=== PATIENT | male | born 1945 | race Hispanic/Latino ===

== ENCOUNTER → 2020-01-21 | Day surgery (SDC) | payer MEDICARE ==
[2020-01-19 14:32] LABS: BASOPHILS # (AUTO) 0.1 (0.0-0.1); BASOPHILS % 0.9 % (0.0-1.0); EOSINOPHILS # (AUTO) 0.2 (0.0-0.4); EOSINOPHILS % 3.1 % (0.0-6.0); HEMATOCRIT 41.1 % (38.2-49.6); HEMOGLOBIN 14.5 g/dL (14.0-18.0); LYMPHOCYTES # (AUTO) 1.7 (1.0-3.2); LYMPHOCYTES % 30.1 % (18.0-39.1); MEAN CORPUSCULAR HEMOGLOBIN 32.2 pg (28-32); MEAN CORPUSCULAR HGB CONC 35.3 g/dL (31-35); MEAN CORPUSCULAR VOLUME 91.3 fL (81-99); MONOCYTES # (AUTO) 0.6 (0.2-0.8); MONOCYTES % 10.3 % (4.4-11.3); NEUTROPHILS # (AUTO) 3.2 (2.1-6.9); NEUTROPHILS % 55.4 % (38.7-80.0); PLATELET COUNT 184 x10e3/uL (140-360); RED CELL DISTRIBUTION WIDTH 12.6 % (11.7-14.4)
[2020-01-19 14:49] LABS: ANION GAP 11.1 mmol/L (8-16); BLOOD UREA NITROGEN 11 mg/dL (7-26); BUN/CREATININE RATIO 12 (6-25); CALCIUM 9.7 mg/dL (8.4-10.2); CARBON DIOXIDE 31 mmol/L (22-29); CHLORIDE 102 mmol/L (98-107); CREATININE, SERUM 0.92 mg/dL (0.72-1.25); EST GLOMERULAR FILTRATION RATE > 60 ML/MIN (60-); GLUCOSE 181 mg/dL (74-118); POTASSIUM 5.1 mmol/L (3.5-5.1); SODIUM 139 mmol/L (136-145)
--- NOTE | 2020-01-19 15:15 | Diagnostic Imaging Report ---
EXAMINATION: CHEST 2 VIEWS INDICATION: Pre-operative COMPARISON: Chest radiograph 10/08/2017 FINDINGS: LINES/TUBES:None LUNGS:The lungs are well-inflated. No focal consolidation or pulmonary edema. Unchanged subcentimeter left lung calcified right normal. PLEURA:No pleural effusion or pneumothorax. MEDIASTINUM:The cardiomediastinal silhouette appears normal in size and shape. Atherosclerotic calcifications of the thoracic aorta. BONES/SOFT TISSUES:No acute osseous injury. Surgical clips at the left axilla. ABDOMEN:No free air under the diaphragm. IMPRESSION: No focal pneumonia or pulmonary edema. Signed by: Diana Valadez MD on 01/19/2020 3:12 PM
[~2020-01-21] MED LIST: ACETAMINOPHEN 1000 MG/100 ML IV ONE; ALPRAZOLAM0.5 MG PO; CEFAZOLIN SOD 1 GM/NS 50ML 100 ML IV ONE; DESFLURANE 240 ML BTL INH ONE; DEXAMETHASONE SOD PHOS INJ 4 MG/ML VIAL ONE; EPHEDRINE SULFATE INJ 50 MG/ML VIAL ONE; EPINEPHRINE 1 MG/ML 30ML VIAL ONE; FENTANYL CITRATE/PF 100MCG/2 ML INJ ONE; GLYCOPYRROLATE INJ 0.2 MG/ML VIAL ONE; HYDROCODONE/APAP 5MG-325MG TAB ONE; LIDOCAINE 2%/ EPINEPHRINE 20ML MDV ONE; LIDOCAINE HCL 2% LOCAL INJ 5 ML SDV VIAL INJ ONE; METFORMIN HCL500 M2 PO; MIDAZOLAM HCL 2 MG/2 ML VIAL ONE; NEOSTIGMINE 1 MG/ML 10ML VIAL ONE; ONDANSETRON HCL INJ 2MG/ML 2ML 2 MG/ML VIAL ONE; PRAVASTATIN SOD20 MG; PROPOFOL IV EMULSION 10 MG/ML 20 ML VIAL ONE; ROCURONIUM BROMIDE 10 MG/ML 5ML VIAL ONE; ROPIVACAINE 0.5% 5 MG/ML 30 ML SDV ONE; ULTRAM50 MG PO
--- OUTSIDE RECORDS SUMMARY | 2020-01-21 05:29 | XMS REPORT ---
Author Author [facility] Address Unknown Phone Unavailable Care Team Providers Care Loss Prevention Associate Name Role Phone REMI VELASCO Unavailable Unavailable Problems This patient has no known problems. Allergies, Adverse Reactions, Alerts This patient has no known allergies or adverse reactions. Medications This patient has no known medications. Results Test Description Test Time Test Comments Text Results Atomic Results Result Comments CHEST 2 VIEWS 2020-01-19 15:08:00 [place] [address] Patient Name: KATHY VAUGHN MR #: [id number] : 1945 Age/Sex: 74/M Req #: [id number] Adm Physician: Ordered by: REMI VELASCO MD Report #: [id number] Location: OR Room/Bed: Procedure: [id number] DX/CHEST 2 VIEWS Exam Date: Exam Time: REPORT STATUS: Signed EXAMINATION: CHEST 2 VIEWS INDICATION: Pre-operative COMPARISON: Chest radiograph 10/08/2017 FINDINGS: LINES/TUBES:None LUNGS:The lungs are well-inflated. No focal consolidation or pulmonary edema. Unchanged subcentimeter left lung calcified right normal. PLEURA:No pleural effusion or pneumothorax. MEDIASTINUM:The cardiomediastinal silhouette appears normal in size and shape. Atherosclerotic calcifications of the thoracic aorta. BONES/SOFT TISSUES:No acute osseous injury. Surgical clips at the left axilla. ABDOMEN:No free air under the diaphragm. IMPRESSION: No focal pneumonia or pulmonary edema. Signed by: Sherie Dewey MD on 01/19/2020 3:12 PM Dictated By: SHERIE DEWEY MD 11 Transcribed By: MIKAYLA on 01/19/201511 COPY TO: REMI VELASCO MD CHEST 2 VIEWS [place] [address] Patient Name: KATHY VAUGHN MR #: [id number] : 1945 Age/Sex: 72/M Req #: [id number] Adm Physician: Ordered by: REMI VELASCO MD Report #: [id number] Location: OR Room/Bed: Procedure: [id number] DX/CHEST 2 VIEWS Exam Date: 10/08/17 Exam Time: 1130 REPORT STATUS: Signed PROCEDURE: CHEST 2 VIEWS TECHNIQUE: PA and lateral chest INDICATION: Preoperative chest x-ray for right knee COMPARISON: [facility], DX, CHEST 2 VIEWS, 05/12/2016, 12:16. FINDINGS: Calcified left lobe granuloma. Lungs otherwise clear and symmetrically inflated. No pleural effusions. Normal heart size. Mildly tortuous thoracic aorta with mild arch calcification. Intact skeleton. Left axillary surgical clips. Cholecystectomy clips. CONCLUSION: No acute abnormality or interval change from May 12. Dictated by: Baldomero Mares M.D. on 10/08/2017 at 12:15 Electronically approved by: Baldomero Mares M.D. on 10/08/2017 at 12:15 Dictated By: BALDOMERO MARES MD 1215 Transcribed By: YAIMA on 10/08/17 [id number] COPY TO: REMI VELASCO MD
[2020-01-21 11:39] VITALS: BP 158/92
--- NOTE | 2020-01-22 18:40 | Operative Report ---
DATE OF PROCEDURE: 01/21/2020 SURGEON: Joselo Martin MD PREOPERATIVE DIAGNOSES: Right shoulder rotator cuff tear, right shoulder labral tear, right shoulder acromioclavicular joint arthritis. POSTOPERATIVE DIAGNOSES: Right shoulder rotator cuff tear, right shoulder labral tear, right shoulder synovitis, right shoulder glenohumeral arthritis, right shoulder acromioclavicular joint arthritis. OPERATIONS/PROCEDURES PERFORMED: The patient underwent right shoulder examination under anesthesia, right shoulder arthroscopy, right shoulder debridement of synovitis, right shoulder chondroplasty of the glenoid, right shoulder arthroscopic biceps tenodesis, right shoulder arthroscopic rotator cuff reconstruction, right shoulder arthroscopic subacromial decompression and acromioplasty, right shoulder arthroscopic distal clavicle resection. ROOM ATTENDANTS: VINICIUS Obrien ANESTHESIA: General endotracheal intubation anesthesia as well as a regional block. IV FLUIDS: Per the anesthesia record. BLOOD LOSS: Less than 5 mL. COMPLICATIONS: None. BRIEF DISCUSSION OF THE PATIENT'S OPERATIVE PROCEDURE: Mr. Sarha was taken to the operating room and placed in supine position on the operating table. Following induction of general anesthesia, the table was converted to beach chair-type position. Examination of the right upper extremity demonstrated no gross abnormalities. The patient had full passive range of motion of the shoulder joint without evidence of instability. The patient's shoulder and upper extremity were prepped and draped in standard surgical fashion. Standard posterolateral and anterior portals were created without difficulty. The scope was placed within the shoulder joint atraumatically. Examination of the glenohumeral articulation demonstrated chondromalacia of the glenoid. There was diffuse synovitis in the shoulder joint. There were no loose bodies in the shoulder. There was a near full-thickness rotator cuff tear along the anterior leading edge of the rotator cuff. An anterior portal was created with an outside-in technique. A probe was placed in the shoulder joint and examination of the biceps. The long head of the biceps tendon found that it was contained within the shoulder joint. There was diffuse superior glenoid labral injury. The shaver was placed in the shoulder joint and synovitis was debrided. A chondroplasty of the glenoid was performed at this time. Labral injury was also debrided. The rotator cuff tear was also debrided at this time. Given the degree of injury to the labrum, an intra-articular biceps tenodesis was undertaken. The rotator interval was debrided to aid bleeding level of tissue. The sutures were then shuttled through the rotator interval capturing the biceps tendon. The biceps tendon was released from the glenoid and drawn into the rotator interval. An elevator was then used to elevate the remaining of rotator cuff tissue that was still attached to the greater tuberosity. A shaver was then used to further debride the insertion site to a bleeding bony bed. The shoulder was inflated with sterile normal saline. The scope was then transferred to the subacromial space. Significant bursal inflammation was encountered. A lateral portal was created with an outside-in technique. A bursectomy was performed. The patient was found to have a markedly downward sloping acromion anteriorly. An accessory anterolateral portal was created without difficulty. Examination of the rotator cuff tissue identified further fraying of the bursal surface of the rotator cuff. This was also debrided at this time. A single suture anchor was then inserted into the greater tuberosity of the humerus and the suture arms from that anchor were then woven through the rotator cuff tissue, advancing the rotator cuff tissue into its normal insertion site. The rotator cuff tissue was then firmly tied over the insertion site, thus creating a reconstruction of the rotator cuff tear. The coracoacromial ligament was then resected. An aggressive acromioplasty was then performed. The shoulder was placed through range of motion and found to have no further impingement. The anterior portal was then transferred into the subacromial space at the level of the acromioclavicular joint. A shaver was then used to resect a 1 cm section of the distal clavicle. The scope was transferred to the anterior portal to confirm completion of this resection. The shoulder was inflated with sterile normal saline. All portal sites were closed in a multilayer fashion. Sterile dressings were applied and the patient was provided a shoulder immobilizer, awakened and taken to the postanesthesia care unit in stable condition. Magnolia Rod acted as first aid attendant for this case and was necessary for both prepping and draping the patient as well as the positioning of the arm and the passage of suture that allowed this case to be successful. MD RALPH Corcoran/ARGELIA /[id number]
== END | disposition home or self-care (01) ==
LOC: OR 05:15
PROVIDERS: ATTEND Specialist
DX: M75.111 Incomplete rotator cuff tear or rupture of right shoulder, not specified as traumatic (principal); S43.431A Superior glenoid labrum lesion of right shoulder, initial encounter; M19.011 Primary osteoarthritis, right shoulder; E11.9 Type 2 diabetes mellitus without complications; M65.811 Other synovitis and tenosynovitis, right shoulder; M94.211 Chondromalacia, right shoulder; J44.9 Chronic obstructive pulmonary disease, unspecified; I10 Essential (primary) hypertension; E78.00 Pure hypercholesterolemia, unspecified; X58.XXXA Exposure to other specified factors, initial encounter; Z01.810 Encounter for preprocedural cardiovascular examination; Z01.812 Encounter for preprocedural laboratory examination; Z01.818 Encounter for other preprocedural examination; Z79.84 Long term (current) use of oral hypoglycemic drugs; Z87.891 Personal history of nicotine dependence
CPT/HCPCS: 29824; 29826; 29827; 29828; 36415 ×2; 71046; 80048; 82948; 85025; 93005; C1713; J0131; J0690; J1100; J2001 ×2; J2250; J2405; J2704; J2710; J2795; J3010

== ENCOUNTER 2021-06-30 13:00 | Outpatient (RCR) | payer MEDICARE, OTHER ==
[~2021-06-30 13:00] MED LIST changes: -ACETAMINOPHEN 1000 MG/100 ML IV ONE; -CEFAZOLIN SOD 1 GM/NS 50ML 100 ML IV ONE; -DESFLURANE 240 ML BTL INH ONE; -DEXAMETHASONE SOD PHOS INJ 4 MG/ML VIAL ONE; -EPHEDRINE SULFATE INJ 50 MG/ML VIAL ONE; -EPINEPHRINE 1 MG/ML 30ML VIAL ONE; -FENTANYL CITRATE/PF 100MCG/2 ML INJ ONE; -GLYCOPYRROLATE INJ 0.2 MG/ML VIAL ONE; -HYDROCODONE/APAP 5MG-325MG TAB ONE; -LIDOCAINE 2%/ EPINEPHRINE 20ML MDV ONE; -LIDOCAINE HCL 2% LOCAL INJ 5 ML SDV VIAL INJ ONE; -MIDAZOLAM HCL 2 MG/2 ML VIAL ONE; -NEOSTIGMINE 1 MG/ML 10ML VIAL ONE; -ONDANSETRON HCL INJ 2MG/ML 2ML 2 MG/ML VIAL ONE; -PROPOFOL IV EMULSION 10 MG/ML 20 ML VIAL ONE; -ROCURONIUM BROMIDE 10 MG/ML 5ML VIAL ONE; -ROPIVACAINE 0.5% 5 MG/ML 30 ML SDV ONE
== END 2021-07-05 ==
LOC: OT 13:00
PROVIDERS: ATTEND Specialist
DX: M75.81 Other shoulder lesions, right shoulder (principal)

== ENCOUNTER 2021-07-06 09:56 | Outpatient (RCR) | payer MEDICARE | END 2021-08-04 | LOC: OT 09:56 | PROVIDERS: ATTEND Specialist | DX: M75.81 Other shoulder lesions, right shoulder (principal) ==